=== PATIENT | male | born 1965 | race Caucasian/White ===

== ENCOUNTER 2018-11-06 12:34 | Inpatient (IN) ==
[2018-11-06] MEDS ORDERED: *HR* FentaNYL (PF) 100 MCG/2 ML VIAL IVP ONE (13:00)
--- NOTE | 2018-11-06 13:22 | Emergency Department Note ---
Disposition Clinical Impression: Pneumothorax Qualifiers: Pneumothorax type: traumatic Encounter type: initial encounter Qualified Code(s): S27.0XXA - Traumatic pneumothorax, initial encounter Rib fractures Qualifiers: Qualified Code(s): S22.41XA - Disposition: Admitted As Inpatient Condition: Good Time of Disposition: 19:56 Fall HPI - General Chief Complaint: ED Fall Stated Complaint: Fall 5 ft vs picnic table Time Seen by Provider: 11/06/18 12:53 Source: patient Nursing Notes Reviewed: Yes Vital Signs Reviewed: Yes - History of Present Illness HPI Narrative: 53-year-old male presents emergency department for concern for fall. Patient was pressure washing. States that he fell from a picnic table which is a 5 feet up. He states that he hurt the right side of his chest. Patient states that he passed out. Patient denies any discomfort anywhere else. - Related Data Home Medications Medication Instructions Recorded Confirmed Modafinil [Provigil] 200 mg PO DAILY 11/06/18 11/06/18 Allergies Allergy/AdvReac Type Severity Reaction Status Date / Time No Known Allergies Allergy Verified 11/06/18 13:30 All systems ED: reviewed and negative except as stated. Review of Systems: As Per HPI Constitutional: Denies: fever Cardiovascular: Reports: chest pain, syncope Respiratory: Denies: dyspnea Gastrointestinal: Denies: abdominal pain, nausea, vomiting Genitourinary: Denies: dysuria, frequency Musculoskeletal: Denies: back pain Neurological: Denies: weakness Fall PMH - Past Medical History Medical history: Reports: no medical history Psychiatric history: Reports: no psych history - Social History Smoking Status: Never smoker Alcohol use: Reports: none Drug use: Reports: none Physical Exam - General Limitations: no limitations General appearance: alert, in no apparent distress - Head Head exam: normocephalic - Eye Eye exam: Present: EOMI - ENT ENT exam: mucous membranes moist - Neck Neck exam: Present: trachea midline - Chest Chest inspection: Present: symmetric chest wall rise, other (Right-sided tenderness. Palpation of the chest wall, equal chest excursion, some mild abrasions on the right lower costal region of the chest) - Respiratory Respiratory exam: Present: normal lung sounds bilaterally. Absent: respiratory distress, accessory muscle use - Cardiovascular Cardiovascular exam: Present: regular rate, normal rhythm, normal heart sounds - Abdominal Exam Abdominal exam: Present: soft, Non-Tender. Absent: distention, guarding, rebound - Extremities Exam Extremities exam: Present: normal capillary refill - Back Exam Back exam: Present: full ROM - Neurological Exam Neurological exam: Present: alert, oriented X3, CN II-XII intact, other (And A0, GCS 15) - Psychiatric Psychiatric exam: Present: normal affect, normal mood Course Vital Signs Temperature 97.7 F 11/06/18 12:37 Pulse Rate 75 11/06/18 12:37 Respiratory Rate 18 11/06/18 12:37 Blood Pressure 134/85 11/06/18 12:37 O2 Sat by Pulse Oximetry 98 11/06/18 12:37 Temperature 97.7 F 11/06/18 12:37 Pulse Rate 94 11/06/18 17:19 Respiratory Rate 14 11/06/18 17:19 Blood Pressure 133/77 11/06/18 17:19 O2 Sat by Pulse Oximetry 98 11/06/18 17:19 Oxygen Delivery Oxygen Delivery Nasal Cannula Procedures - Chest Tube Chest Tube 1 Chest Tube Location: fifth interspace Size of Tube (cm): 28 Chest Tube Prep: betadine prep, sterile drapes applied Local Anesthetic: lidocaine 1%, with epi Amount of Anesthesia Used (mL): 15 Incision Made With: #10 blade Post Procedure: sutured to skin, sterile dressing applied Tube Drainage: none Post Procedure CXR?: Yes Patient Tolerated Procedure: Yes Fall - [facility] Narrative Medical decision making narrative: 53-year-old male presents emergency department after traumatic fall. Airway, breathing, circulation intact. Patient does not have any disability. GCS 15, NIH 0, upon exposure, patient had mild abrasion of the right costal margin. ED fast exam was obtained. Did not reveal any acute abnormality. Patient is given pain medication. Obtain chest x-ray which revealed no acute cardiopulmonary abnormality. We did however, obtain a CT of the chest which revealed rib fractures as well as a 20% pneumothorax. CT scan of abdomen and pelvis reveal any intra-abdominal abnormalities. Patient was consented for chest tube placement. Chest tube was placed succes sfully. No complications. Resolution of a lot of symptoms for patient after insertion of chest tube. I spoke with our acute care surgery team who agreed to accept this patient to their service. Patient hemodynamically stable and feeling much better at that time. Pelvis X-Ray 11/06/18 13:00 IMPRESSION: Unremarkable AP pelvis radiograph. If pain persists or worsens, then additional evaluation with MRI is indicated to ensure no underlying radiographically occult process such as fracture, AVN or transient osteoporosis. D/ / Hardy Saez / Hardy Saez Interpreting Provider: Hardy Saez Abdomen/Pelvis CT 11/06/18 13:19 IMPRESSION: No CT evidence of acute intra-traumatic injury on this noncontrast study. Partially visualized moderate size right pneumothorax. Right lateral 5th and 6th rib nondisplaced fractures. Enlarged prostate gland. Fatty liver. D/ / Artis Hidalgo / Artis Hidalgo Interpreting Provider: Artis Hidalgo Chest CT 11/06/18 13:19 IMPRESSION: 1. Suboptimal CT exam for evaluation of acute trauma performed without IV contrast. 2. Approximately 20% right pneumothorax. 3. Nondisplaced fractures lateral right ribs 6 and 7. 4. Mild right chest wall contusion. 5. Right basilar subsegmental atelectasis versus focal pulmonary contusion. 6. Mild calcific atherosclerosis aorta and coronary arteries. Critical results were called by Dr. Hardy Saez to Thad Sterling DO on 11/06/2018 at 14:49 full. D/ / Hardy Saez Interpreting Provider: Hardy Saez Chest X-Ray 11/06/18 16:52 IMPRESSION: 1. Interval right chest tube placement with resolution of the pneumothorax. 2. No new abnormality 3. Nondisplaced right 6th and 7th rib fractures. D/ / Theo Jarvis MD / Theo Jarvis MD Interpreting Provider: Theo Jarvis MD - Lab Data Result diagrams: 11/06/18 15:42 11/06/18 15:42 Lab Results 11/06/18 11/06/1811/06/19 Range/Units 15:42 15:42 15:42 WBC 14.3 H (4.3-11.1) K/mcL RBC 5.40 (4.19-5.50) M/mcL Hgb 15.7 (12.9-16.9) g/dL Hct 46.7 (37.5-50.1) % MCV 86.5 (83.0-100.0) fL MCH 29.1 (28.0-33.3) pg MCHC 33.6 (31.6-35.5) g/dL RDW 13.4 (11.5-14.5) % Plt Count 229 (140-400) K/mcL MPV 9.5 (9.4-12.4) fL Immature Gran % 0.5 (0-4) % Seg Neutrophils % 80.6 % Lymphocytes % 10.6 % Monocytes % 7.8 % Eosinophils % 0.3 % Basophils % 0.2 % Neutrophils # 11.5 H (1.6-8.9) K/mcL Lymphocytes # 1.5 (0.6-4.6) K/mcL Monocytes # 1.1 (0.0-1.3) K/mcL Eosinophils # 0.0 (0.0-0.6) K/mcL Basophils # 0.0 (0.0-0.2) K/mcL PT 11.4 (9.4-12.1) Seconds INR 1.0 Sodium 142 (136-145) mEq/L Potassium 3.7 (3.5-5.1) mEq/L Chloride 106 (98-107) mEq/L Carbon Dioxide 24 (23-29) mEq/L BUN 14 (6-20) mg/dL Creatinine 1.01 (0.70-1.30) mg/dL Est GFR ( Amer) > 60 (> 60) Est GFR (Non-Af Amer) > 60 (> 60) BUN/Creatinine Ratio 14 (6-26) Glucose 112 H (70-105) mg/dL Calculated Osmolality 295 (280-300) Calcium 9.8 (8.6-10.3) mg/dL Total Bilirubin 0.5 (0.3-1.0) mg/dL AST 29 (13-39) Units/L ALT 38 (7-52) Units/L Alkaline Phosphatase 84 (34-104) Units/L Serum Total Protein 7.4 (6.4-8.9) g/dL Albumin 4.6 (3.5-5.7) g/dL Globulin 2.8 (2.4-3.5) g/dL Albumin/Globulin Ratio 1.6 (1.1-2.2) Lipase (11-82) Units/L // Range/Units 15:42 WBC (4.3-11.1) K/mcL RBC (4.19-5.50) M/mcL Hgb (12.9-16.9) g/dL Hct (37.5-50.1) % MCV (83.0-100.0) fL MCH (28.0-33.3) pg MCHC (31.6-35.5) g/dL RDW (11.5-14.5) % Plt Count (140-400) K/mcL MPV (9.4-12.4) fL Immature Gran % (0-4) % Seg Neutrophils % % Lymphocytes % % Monocytes % % Eosinophils % % Basophils % % Neutrophils # (1.6-8.9) K/mcL Lymphocytes # (0.6-4.6) K/mcL Monocytes # (0.0-1.3) K/mcL Eosinophils # (0.0-0.6) K/mcL Basophils # (0.0-0.2) K/mcL PT (9.4-12.1) Seconds INR Sodium (136-145) mEq/L Potassium (3.5-5.1) mEq/L Chloride (98-107) mEq/L Carbon Dioxide (23-29) mEq/L BUN (6-20) mg/dL Creatinine (0.70-1.30) mg/dL Est GFR ( Amer) (> 60) Est GFR (Non-Af Amer) (> 60) BUN/Creatinine Ratio (6-26) Glucose (70-105) mg/dL Calculated Osmolality (280-300) Calcium (8.6-10.3) mg/dL Total Bilirubin (0.3-1.0) mg/dL AST (13-39) Units/L ALT (7-52) Units/L Alkaline Phosphatase (34-104) Units/L Serum Total Protein (6.4-8.9) g/dL Albumin (3.5-5.7) g/dL Globulin (2.4-3.5) g/dL Albumin/Globulin Ratio (1.1-2.2) Lipase 19 (11-82) Units/L - Radiology Data Radiology results reviewed: Yes I reviewed the patient's radiology results.
[2018-11-06] MEDS ORDERED: Morphine Sulfate Immed Rel 30 MG TABLET PO STA (15:14)
[2018-11-06] MEDS ORDERED: *HR* HYDROmorphone (PF) 1 MG/ML SYRINGE IVP ONE ×2 (15:14→16:30)
[2018-11-06] MEDS ORDERED: Lidocaine/EPI 1:100k 1% 30 ML VIAL INFILT ONE (15:18)
--- NOTE | 2018-11-06 15:20 | Emergency Department Note ---
Disposition Clinical Impression: Pneumothorax Qualifiers: Pneumothorax type: traumatic Encounter type: initial encounter Qualified Code(s): S27.0XXA - Traumatic pneumothorax, initial encounter Disposition: Admitted As Inpatient Condition: Good Forms: ED Satisfaction Letter Time of Disposition: 15:17 General Adult HPI - General Chief complaint: ED Fall Stated complaint: Fall 5 ft vs picnic table Time Seen by Provider: 11/06/18 12:53 Source: patient Limitations: no limitations - History of Present Illness Pain Scale: 5 - Related Data Allergies Allergy/AdvReac Type Severity Reaction Status Date / Time No Known Allergies Allergy Verified 11/06/18 13:30 Past Medical History - Past Medical History Medical history: Reports: no medical history Psychiatric history: Reports: no psych history - Social History Smoking Status: Never smoker Alcohol use: Reports: none Drug use: Reports: none Physical Exam - General Limitations: no limitations General appearance: alert, in no apparent distress Course Vital Signs Temperature 97.7 F 11/06/18 12:37 Pulse Rate 75 11/06/18 12:37 Respiratory Rate 18 11/06/18 12:37 Blood Pressure 134/85 11/06/18 12:37 O2 Sat by Pulse Oximetry 98 11/06/18 12:37 Temperature 97.7 F 11/06/18 12:37 Pulse Rate 99 11/06/18 15:10 Respiratory Rate 18 11/06/18 15:10 Blood Pressure 139/92 11/06/18 15:10 O2 Sat by Pulse Oximetry 100 11/06/18 15:10 Oxygen Delivery Oxygen Delivery Room Air Attestation Statement - Attestation Attestation: I reviewed the residents documentation and agree with the residents assessment and plan of care. I have personally had face to face time with the patient. (Brief History, Brief Exam, and MDM) I personally supervised and was present for the murray/critical portions of the following procedures completed by the resident: Chest tube 53 year old male presents to the ED with complaints of fall while pressure washing and slipped and fell from one picnic table and fell into the side of another picnic table and then expereinced syncope. He has crusing to the 5-8th right rib area and there are otherwise concern fo rpneumonthorax or liver laceration. PAtinet CXR is negative, and FAST exam (-). Patient on CT chest shows moderate pneumo and we have consulted with surgery with Dr. Houston and they would like to us to place a 28 upper sorbian chest tube. Patient is otherwise hemodynamically stable. He has been accepted to surgerical service
[2018-11-06 16:09] LABS: Basophils % 0.2 %; Eosinophils % 0.3 %; Hematocrit 46.7 % (37.5-50.1); Hemoglobin 15.7 g/dL (12.9-16.9); Immature Granulocytes % 0.5 % (0-4); Lymphocytes # 1.5 K/mcL (0.6-4.6); Lymphocytes % 10.6 %; Mean Corpuscular HGB Conc 33.6 g/dL (31.6-35.5); Mean Corpuscular Hemoglobin 29.1 pg (28.0-33.3); Mean Corpuscular Volume 86.5 fL (83.0-100.0); Mean Platelet Volume 9.5 fL (9.4-12.4); Monocytes # 1.1 K/mcL (0.0-1.3); Monocytes % 7.8 %; Neutrophils # 11.5 K/mcL (1.6-8.9); Platelet Count 229 K/mcL (140-400); Red Cell Distribution Width 13.4 % (11.5-14.5); Segmented Neutrophils % 80.6 %; White Blood Count 14.3 K/mcL (4.3-11.1)
[2018-11-06 16:26] LABS: Alanine Aminotransferase 38 Units/L (7-52); Albumin 4.6 g/dL (3.5-5.7); Albumin/Globulin Ratio 1.6 (1.1-2.2); Alkaline Phosphatase 84 Units/L (34-104); Aspartate Amino Transferase 29 Units/L (13-39); BUN/Creatinine Ratio 14 (6-26); Bilirubin,Total 0.5 mg/dL (0.3-1.0); Blood Urea Nitrogen 14 mg/dL (6-20); Calcium 9.8 mg/dL (8.6-10.3); Carbon Dioxide 24 mEq/L (23-29); Chloride 106 mEq/L (98-107); Globulin 2.8 g/dL (2.4-3.5); Glucose 112 mg/dL (70-105); Osmolality,Calculated 295 (280-300); Potassium 3.7 mEq/L (3.5-5.1); Sodium 142 mEq/L (136-145); Total Protein 7.4 g/dL (6.4-8.9); eGFR For African Americans > 60 (> 60); eGFR For Non-African Americans > 60 (> 60)
[2018-11-06] MEDS ORDERED: *HR* HYDROmorphone (PF) 1 MG/ML SYRINGE ONE (16:30)
[2018-11-06] MEDS ORDERED: ceFAZolin 1,000 MG in Water for inj. (sterile) 10 ML IVP ONE (16:52)
--- NOTE | 2018-11-06 17:05 | AcuteCare Surgery Consult Note ---
Date of Encounter: 11/06/18 Time of Encounter: 17:00 History of Present Illness Consult date: 11/06/18 Reason for consult: chest tube Requesting physician: Elin Olivares History of present illness: this 53 y/o male presents to [facility] secondary to a fall from a standing position. He fractured ribs and has suffered a PTX. Past Med Surg Social Fam HX - Past Medical History Medical history: no medical history Psychiatric history: no psych history - Social History Smoking Status: Never smoker Alcohol use: none Drug use: none Medications and Allergies Modafinil [Provigil] 200 mg PO DAILY 11/06/18 [History] Allergy/AdvReac Type Severity Reaction Status Date / Time No Known Allergies Allergy Verified 11/06/18 13:30 Review of Systems All systems PM: The remainder of the systems were reviewed and are negative General Surgery Exam Initial Vital Signs Temp Pulse Resp BP Pulse Ox 97.7 F 75 18 134/85 98 11/06/18 12:37 11/06/18 12:37 11/06/18 12:37 11/06/18 12:37 11/06/18 12:37 Exam Initial Vital Signs Temp Pulse Resp BP Pulse Ox 97.7 F 75 18 134/85 98 11/06/18 12:37 11/06/18 12:37 11/06/18 12:37 11/06/18 12:37 11/06/18 12:37 Results - Labs 11/06/18 15:42 11/06/18 15:42 Abnormal lab results WBC 14.3 K/mcL (4.3-11.1) H 11/06/18 15:42 11.5 K/mcL (1.6-8.9) H 11/06/18 15:42 Glucose 112 mg/dL (70-105) H 11/06/18 15:42 Diabetes panel 11/06/18 Range/Units 15:42 Sodium 142 (136-145) mEq/L Potassium 3.7 (3.5-5.1) mEq/L Chloride 106 (98-107) mEq/L Carbon Dioxide 24 (23-29) mEq/L BUN 14 (6-20) mg/dL Creatinine 1.01 (0.70-1.30) mg/dL Glucose 112 H (70-105) mg/dL Calcium 9.8 (8.6-10.3) mg/dL AST 29 (13-39) Units/L ALT 38 (7-52) Units/L Alkaline Phosphatase 84 (34-104) Units/L Albumin 4.6 (3.5-5.7) g/dL Calcium panel 11/06/18 Range/Units 15:42 Calcium 9.8 (8.6-10.3) mg/dL Albumin 4.6 (3.5-5.7) g/dL Pituitary panel 11/06/18 Range/Units 15:42 Sodium 142 (136-145) mEq/L Potassium 3.7 (3.5-5.1) mEq/L Chloride 106 (98-107) mEq/L Carbon Dioxide 24 (23-29) mEq/L BUN 14 (6-20) mg/dL Creatinine 1.01 (0.70-1.30) mg/dL Glucose 112 H (70-105) mg/dL Calcium 9.8 (8.6-10.3) mg/dL Adrenal panel 11/06/18 Range/Units 15:42 Sodium 142 (136-145) mEq/L Potassium 3.7 (3.5-5.1) mEq/L Chloride 106 (98-107) mEq/L Carbon Dioxide 24 (23-29) mEq/L BUN 14 (6-20) mg/dL Creatinine 1.01 (0.70-1.30) mg/dL Glucose 112 H (70-105) mg/dL Calcium 9.8 (8.6-10.3) mg/dL Total Bilirubin 0.5 (0.3-1.0) mg/dL AST 29 (13-39) Units/L ALT 38 (7-52) Units/L Alkaline Phosphatase 84 (34-104) Units/L Albumin 4.6 (3.5-5.7) g/dL All other labs normal. Consult Discharge Plan - Plan Referrals: Hardy Chapman DO [Primary Care Provider] -
[2018-11-06] MEDS ORDERED: Ondansetron 4 MG/2 ML VIAL IVP ONE (17:23)
[2018-11-06 17:31] LABS: Prothrombin Time 11.4 Seconds (9.4-12.1)
[2018-11-06] MEDS ORDERED: Naloxone 0.4 MG/ML INJ IVP PRN (18:35)
--- NOTE | 2018-11-06 18:40 | Acute Care Surgery H&P ---
Date of Encounter: 11/06/18 Time of Encounter: 17:30 Assessment and Plan (1) Pneumothorax, right Current Visit: Yes Status: Acute The assessment and plan as outlined above was discussed with the patient and/or family members who expressed understanding and agreement. All questions were answered. Right chest tube inserted in ED. Routine CT management. O2 per nc. Ancef IV until CT removed. IS. (2) Rib fractures Current Visit: Yes Status: Acute The assessment and plan as outlined above was discussed with the patient and/or family members who expressed understanding and agreement. All questions were answered. Pain control with PO narcotics Qualifiers: Qualified Code(s): S22.41XA - Multiple fractures of ribs, right side, initial encounter for closed fracture (3) Chest wall contusion Current Visit: Yes Status: Acute The assessment and plan as outlined above was discussed with the patient and/or family members who expressed understanding and agreement. All questions were an swered. Qualifiers: Qualified Code(s): S20.211A - Contusion of right front wall of thorax, initial encounter (4) Status post fall Current Visit: Yes Status: Acute The assessment and plan as outlined above was discussed with the patient and/or family members who expressed understanding and agreement. All questions were answered. Spontaneous trauma resulting from an accident and resulting in blunt chest trauma with right rib fx x2 and right PTX History of Present Illness Chief complaint: right pneumothorax HPI: Mr. Graves is a 53 year old male who fell off of a table onto another table while power washing. He fell onto his right side. He reports right sided chest pain and SOB. He reports bruising to his right chest and abdomen. He denies LOC. A chest tube was placed in the ED and pt is admitted to [facility] for CT management s/p trauma Past Med Surg Social Fam HX - Past Medical History Medical history: no medical history Psychiatric history: no psych history - Social History Smoking Status: Never smoker Alcohol use: none Drug use: none Medications and Allergies Modafinil [Provigil] 200 mg PO DAILY 11/06/18 [History] Allergy/AdvReac Type Severity Reaction Status Date / Time No Known Allergies Allergy Verified 11/06/18 13:30 Review of Systems All systems PM: The remainder of the systems were reviewed and are negative - Constitutional other (s/p fall), no anorexia, no chills, no fatigue, no fever(s), no frequent falls, no lethargy, no malaise, no weakness - EENT Nose, mouth and throat: no dizziness, no dry mouth, no nasal congestion, no nasal discharge, no sinus pain, no sinus pressure, no sore throat - Cardiovascular chest pain, chest pain at rest, dyspnea, dyspnea on exertion, no diaphoresis, no edema - Respiratory dyspnea, no cough, no wheezing - Gastrointestinal no abdominal pain, no constipation, no diarrhea, no hematochezia, no melena, no nausea, no vomiting - Genitourinary flank pain, no dysuria, no urinary frequency - Musculoskeletal back pain, neck pain, no joint swelling, no limited range of motion - Integumentary no dry skin, no pruritus, no rash, no wounds, no jaundice - Neurological no confusion, no dizziness, no focal weakness, no weakness - Psychiatric no anxiety, no confusion, no depression - Endocrine no fatigue - Hematologic/Lymphatic no easy bleeding, no easy bruising General Surgery Exam Initial Vital Signs Temp Pulse Resp BP Pulse Ox 97.7 F 75 18 134/85 98 11/06/18 12:37 11/06/18 12:37 11/06/18 12:37 11/06/18 12:37 11/06/18 12:37 - General physical appearance well developed, well nourished, no distress, moderate pain - Eyes PERRL, normal ocular movement. negative: icteric - ENT no congestion, dry mucosa. negative: nasal discharge - Neck no masses, trachea midline, no lymphadectomy, no venous distension - Respiratory normal respiratory effort rales: right - Cardiovascular Cardiovascular exam: Present: RRR (chest tube in place). Absent: murmurs, JVD - Abdomen Abdomen general surgery: Present: bowel sounds present, soft, non tender. Absent: guarding, rebound - Genitourinary Present: normal penis with no external lesions - Neurologic Present: CN 2-12 grossly intact, normal coordination - Musculoskeletal Present: normal posture - Psychiatric Psychiatric general surgery: Present: A&Ox3, appropriate, oriented to person Results - Labs 11/06/18 15:42 11/06/18 15:42 Abnormal lab results WBC 14.3 K/mcL (4.3-11.1) H 11/06/18 15:42 11.5 K/mcL (1.6-8.9) H 11/06/18 15:42 Glucose 112 mg/dL (70-105) H 11/06/18 15:42 Diabetes panel 11/06/18 Range/Units 15:42 Sodium 142 (136-145) mEq/L Potassium 3.7 (3.5-5.1) mEq/L Chloride 106 (98-107) mEq/L Carbon Dioxide 24 (23-29) mEq/L BUN 14 (6-20) mg/dL Creatinine 1.01 (0.70-1.30) mg/dL Glucose 112 H (70-105) mg/dL Calcium 9.8 (8.6-10.3) mg/dL AST 29 (13-39) Units/L ALT 38 (7-52) Units/L Alkaline Phosphatase 84 (34-104) Units/L Albumin 4.6 (3.5-5.7) g/dL Calcium panel 11/06/18 Range/Units 15:42 Calcium 9.8 (8.6-10.3) mg/dL Albumin 4.6 (3.5-5.7) g/dL Pituitary panel 11/06/18 Range/Units 15:42 Sodium 142 (136-145) mEq/L Potassium 3.7 (3.5-5.1) mEq/L Chloride 106 (98-107) mEq/L Carbon Dioxide 24 (23-29) mEq/L BUN 14 (6-20) mg/dL Creatinine 1.01 (0.70-1.30) mg/dL Glucose 112 H (70-105) mg/dL Calcium 9.8 (8.6-10.3) mg/dL Adrenal panel 11/06/18 Range/Units 15:42 Sodium 142 (136-145) mEq/L Potassium 3.7 (3.5-5.1) mEq/L Chloride 106 (98-107) mEq/L Carbon Dioxide 24 (23-29) mEq/L BUN 14 (6-20) mg/dL Creatinine 1.01 (0.70-1.30) mg/dL Glucose 112 H (70-105) mg/dL Calcium 9.8 (8.6-10.3) mg/dL Total Bilirubin 0.5 (0.3-1.0) mg/dL AST 29 (13-39) Units/L ALT 38 (7-52) Units/L Alkaline Phosphatase 84 (34-104) Units/L Albumin 4.6 (3.5-5.7) g/dL All other labs normal. - Imaging Chest x-ray: image reviewed (resolution of right PTX after CT inserted) CT scan - abdomen: image reviewed (No obvious intraabdominal injury) CT scan - chest: image reviewed (right rib 5&6 fx and right PTX)
[2018-11-06] MEDS ORDERED: 0.9 % Sodium Chloride 1,000 ML IVC SCH (18:45)
[2018-11-06] MEDS: *HR* OxyCODONE/APAP 5/325 TABLET PO PRN (20:36)
[2018-11-07] MEDS: ceFAZolin 1,000 MG in Water for inj. (sterile) 10 ML IVP SCH ×4 (01:07→23:38)
[2018-11-07] MEDS: *HR* OxyCODONE/APAP 5/325 TABLET PO PRN ×4 (02:47→23:50)
--- NOTE | 2018-11-07 12:12 | AcuteCareSurgery Progress Note ---
<Gardenia Love - Last Filed: 11/07/18 12:13> Date of Encounter: 11/07/18 Time of Encounter: 12:11 - Assessment and Plan (1) Pneumothorax, right Current Visit: Yes Status: Acute Status post day 1 chest tube placement for traumatic pneumothorax on the right No air leak, chest tube in place IV antibiotics cefazolin Oxycodone for pain Chest x-ray this morning-indwelling right large bore chest tube with subcutaneous emphysema seen, this sidehole catheter tracking into the soft tissues. Chest tube currently to suction, as there is no air leak will place chest tube to waterseal. Will repeat chest x-ray this afternoon to further evaluate pneumothorax. (2) Rib fractures Current Visit: Yes Status: Acute Right lateral fifth and sixth rib nondisplaced fractures secondary to traumatic fall. Pain control-oxycodone Intermittent spirometry Qualifiers: Encounter type: initial encounter Rib fracture type: multiple ribs Fracture type: closed Laterality: right Qualified Code(s): S22.41XA - Multiple fractures of ribs, right side, initial encounter for closed fracture (3) Chest wall contusion Current Visit: Yes Status: Acute Status post fall with traumatic rib fractures, chest wall contusion, pneumothorax. See above for management Qualifiers: Encounter type: initial encounter Laterality: right Qualified Code(s): S20.211A - Contusion of right front wall of thorax, initial encounter (4) Status post fall Current Visit: Yes Status: Acute Status post fall with traumatic rib fractures, chest wall contusion, pneumothorax. See above for management (5) DVT prophylaxis Current Visit: Yes Status: Acute Subcutaneous heparin Subjective Narrative: Patient seen and examined at bedside today. His chest tube is in place, no air leak present. The chest tube is currently to suction. He admits to some pain around the chest tube insertion site as well as some pain with taking a deep breath secondary to history of fractures. He denies nausea, vomiting, fever, chills, shortness breath, abdominal pain, diarrhea, constipation, dysuria, hematuria, calf pain. Objective Vital Signs - Last 8 Hours Temp Pulse Resp BP Pulse Ox 11/07/18 11:17 68 124/85 94 11/07/18 06:41 97.9 F 60 141/88 98 11/07/18 04:20 98.2 F 63 16 136/82 98 Intake and Output 11/06/18 11/07/18 11/07/18 23:59 07:59 15:59 Intake Total 360 / 720 360 / 720 Output Total 684 / 884 200 / 884 Balance -324 / -164 160 / -164 Intake: IV Fluids Ancef 1,000 MG In Water for inj . (sterile) 10 ML @ 200 mls/hr IVP Q8HR [facility] Rx#:[id number] Oral 0 / 0 350 / 710 360 / 710 Output: Urine 0 / 0 650 / 850 200 / 850 Chest Tube Drainage Right Mid-Axillary Chest Other: Meal Breakfast Percent of Meal Consumed 85% Weight 78.8 kg Patient Weight 11/07/18 23:59 Weight 78.8 kg - General physical appearance well developed, well nourished, no distress - Eyes PERRL, normal ocular movement - ENT normal mucosa, no congestion - Neck Neck exam: trachea midline, no venous distension - Respiratory normal expansion, normal respiratory effort, clear to auscultation, other (Mild tenderness to palpation over chest tube insertion site and over ribs 5 and 6 on the right.) - Cardiovascular Cardiovascular exam: Present: RRR, no murmurs/rubs/gallops. Absent: JVD - Abdomen Abdomen: Present: bowel sounds present, soft, non tender. Absent: distended - Incision Incision: Present: clean and dry, intact - Neurologic CN 2-12 grossly intact, normal coordination, normal sensation - Musculoskeletal normal posture - Psychiatric oriented to time, oriented to person, oriented to place, speech is normal, memory intact - Labs 11/06/18 15:42 11/06/18 15:42 Diabetes panel 11/06/18 Range/Units 15:42 Sodium 142 (136-145) mEq/L Potassium 3.7 (3.5-5.1) mEq/L Chloride 106 (98-107) mEq/L Carbon Dioxide 24 (23-29) mEq/L BUN 14 (6-20) mg/dL Creatinine 1.01 (0.70-1.30) mg/dL Glucose 112 H (70-105) mg/dL Calcium 9.8 (8.6-10.3) mg/dL AST 29 (13-39) Units/L ALT 38 (7-52) Units/L Alkaline Phosphatase 84 (34-104) Units/L Albumin 4.6 (3.5-5.7) g/dL Calcium panel 11/06/18 Range/Units 15:42 Calcium 9.8 (8.6-10.3) mg/dL Albumin 4.6 (3.5-5.7) g/dL Pituitary panel 11/06/18 Range/Units 15:42 Sodium 142 (136-145) mEq/L Potassium 3.7 (3.5-5.1) mEq/L Chloride 106 (98-107) mEq/L Carbon Dioxide 24 (23-29) mEq/L BUN 14 (6-20) mg/dL Creatinine 1.01 (0.70-1.30) mg/dL Glucose 112 H (70-105) mg/dL Calcium 9.8 (8.6-10.3) mg/dL Adrenal panel 11/06/18 Range/Units 15:42 Sodium 142 (136-145) mEq/L Potassium 3.7 (3.5-5.1) mEq/L Chloride 106 (98-107) mEq/L Carbon Dioxide 24 (23-29) mEq/L BUN 14 (6-20) mg/dL Creatinine 1.01 (0.70-1.30) mg/dL Glucose 112 H (70-105) mg/dL Calcium 9.8 (8.6-10.3) mg/dL Total Bilirubin 0.5 (0.3-1.0) mg/dL AST 29 (13-39) Units/L ALT 38 (7-52) Units/L Alkaline Phosphatase 84 (34-104) Units/L Albumin 4.6 (3.5-5.7) g/dL Consult Discharge Plan - Plan Referrals: Hardy Chapman DO [Primary Care Provider] - <Nereyda Gutierrez - Last Filed: 11/07/18 16:43> Date of Encounter: 11/07/18 - Assessment and Plan (1) Pneumothorax, right Current Visit: Yes Status: Acute (2) Rib fractures Current Visit: Yes Status: Acute Qualifiers: Encounter type: initial encounter Rib fracture type: multiple ribs Fracture type: closed Laterality: right Qualified Code(s): S22.41XA - Multiple fractures of ribs, right side, initial encounter for closed fracture (3) Chest wall contusion Current Visit: Yes Status: Acute Qualifiers: Encounter type: initial encounter Laterality: right Qualified Code(s): S20.211A - Contusion of right front wall of thorax, initial encounter (4) Status post fall Current Visit: Yes Status: Acute Objective Vital Signs - Last 8 Hours Pulse BP Pulse Ox 11/07/18 15:15 70 154/92 94 11/07/18 11:17 68 124/85 94 Intake and Output 11/07/18 11/07/18 11/07/18 07:59 15:59 23:59 Intake Total 360 / 970 610 / 970 Output Total 684 / 909 225 / 909 Balance -324 / 61 385 / 61 Intake: IV Fluids Ancef 1,000 MG In Water for inj . (sterile) 10 ML @ 200 mls/hr IVP Q8HR [facility] Rx#:[id number] Oral 350 / 950 600 / 950 Output: Urine 650 / 850 200 / 850 Chest Tube Drainage Right Mid-Axillary Chest Other: Meal Lunch Percent of Meal Consumed 100% Weight 78.8 kg Patient Weight 11/07/18 23:59 Weight 78.8 kg - Labs 11/06/18 15:42 11/06/18 15:42 - Attending Attestation I examined this patient and my medical decision-making was reviewed with the Resident Physician. I agree with the documented findings, disposition and treatment plan as described except to the extent set forth below. Pt is HD#2 with right chest tube for pneumothorax d/t rib fractures after fall. He tolerated chest tube to water seal today without recurrence of PTX. Chest tube is without air leak. If PCXR in am reveals continued expansion of right lung will dc chest tube and DC to home with pain meds for rib fx and close f/u.
[2018-11-07] MEDS: *HR* Heparin 5,000 UNIT/ML VIAL SQ SCH (17:14)
[2018-11-08 02:35] LABS: Basophils % 0.4 %; Eosinophils # 0.2 K/mcL (0.0-0.6); Eosinophils % 2.2 %; Hematocrit 41.8 % (37.5-50.1); Hemoglobin 13.9 g/dL (12.9-16.9); Immature Granulocytes % 0.3 % (0-4); Lymphocytes # 2.2 K/mcL (0.6-4.6); Lymphocytes % 31.2 %; Mean Corpuscular HGB Conc 33.3 g/dL (31.6-35.5); Mean Corpuscular Hemoglobin 29.1 pg (28.0-33.3); Mean Corpuscular Volume 87.6 fL (83.0-100.0); Mean Platelet Volume 9.5 fL (9.4-12.4); Monocytes # 0.9 K/mcL (0.0-1.3); Monocytes % 13.3 %; Neutrophils # 3.6 K/mcL (1.6-8.9); Platelet Count 212 K/mcL (140-400); Red Blood Count 4.77 M/mcL (4.19-5.50); Red Cell Distribution Width 13.5 % (11.5-14.5); Segmented Neutrophils % 52.6 %; White Blood Count 6.9 K/mcL (4.3-11.1)
[2018-11-08 02:53] LABS: BUN/Creatinine Ratio 11 (6-26); Blood Urea Nitrogen 12 mg/dL (6-20); Calcium 8.3 mg/dL (8.6-10.3); Carbon Dioxide 27 mEq/L (23-29); Chloride 104 mEq/L (98-107); Glucose 112 mg/dL (70-105); Osmolality,Calculated 287 (280-300); Sodium 138 mEq/L (136-145); eGFR For African Americans > 60 (> 60); eGFR For Non-African Americans > 60 (> 60)
[2018-11-08] MEDS: *HR* OxyCODONE/APAP 5/325 TABLET PO PRN (05:49)
[2018-11-08] MEDS: *HR* Heparin 5,000 UNIT/ML VIAL SQ SCH (05:49)
--- NOTE | 2018-11-08 09:50 | Discharge Summary ---
<Gardenia Love - Last Filed: 11/08/18 13:33> - NOTES TO OUTPATIENT PROVIDER Notes to Outpatient Provider: Patient sustained a right-sided pneumothorax as well as rib fractures to right lateral fifth, sixth, seventh rib after a fall onto a picnic table while power washing. He is status post chest tube. Sutures remain in place from chest tube site. Patient to follow-up with acute care surgery in one week for chest xray to assess for complete resolution of pneumothorax and suture removal. New medication includes Percocet for 5 days. Orders not resulted at time of discharge: Pending orders 11/08/18 10:00 XR chest 1V [XR] Routine XR knee 3V LT [XR] Routine Date of Encounter: 11/08/18 Time of Encounter: 09:45 - Discharge Diagnosis (1) Pneumothorax, right Priority: Primary Status: Acute (2) Rib fractures Priority: Secondary Status: Acute Qualifiers: Encounter type: initial encounter Rib fracture type: multiple ribs Fracture type: closed Laterality: right Qualified Code(s): S22.41XA - Multiple fractures of ribs, right side, initial encounter for closed fracture (3) Chest wall contusion Priority: Secondary Status: Acute Qualifiers: Encounter type: initial encounter Laterality: right Qualified Code(s): S20.211A - Contusion of right front wall of thorax, initial encounter (4) Status post fall Priority: Secondary Status: Acute (5) DVT prophylaxis Priority: Secondary Status: Acute General Surgery Exam Initial Vital Signs Temp Pulse Resp BP Pulse Ox 97.7 F 75 18 134/85 98 11/06/18 12:37 11/06/18 12:37 11/06/18 12:37 11/06/18 12:37 11/06/18 12:37 - General physical appearance well developed, well nourished, no distress - Eyes PERRL, normal ocular movement - ENT normal mucosa - Neck trachea midline, no venous distension - Respiratory normal expansion, normal respiratory effort, clear to auscultation, other (Chest tube site is closed with suture, no erythema or drainage. ) - Cardiovascular Cardiovascular exam: Present: RRR, no murmurs/rubs/gallops. Absent: JVD - Abdomen Abdomen general surgery: Present: bowel sounds present, soft, non tender - Integumentary Integumentary general surgery: Present: warm and dry, no abnormal pigmentation - Neurologic Present: CN 2-12 grossly intact, normal coordination, normal sensation - Musculoskeletal Present: normal gait, normal posture - Psychiatric Psychiatric general surgery: Present: appropriate, oriented to person, oriented to place, oriented to time, speech is normal, memory intact - Hospital Course Hospital course: Mr. Graves is a 53 year old male who presented after a fall with complaint of right-sided pain of his chest. He denies a past medical history. The patient was standing on a picnic table and power washing when he fell and injured the right side of his chest. A CT was performed which revealed a right-sided 20% pneumothorax, nondisplaced fractures of the lateral right ribs 5, 6, and 7, mild right chest wall contusion. While in the emergency department a chest tube was placed into the right fifth interspace and placed to suction. Prophylactic antibiotic Ancef was given for duration of chest tube. Patient had daily chest x-rays to need to monitor the pneumothorax. Chest tube was placed to water seal on day 2 with no recurrence of the pneumothorax or air leak. Today, the patient complained of left knee pain and edema, his morning chest x-ray revealed a tiny residual right apical pneumothorax. The chest tube was removed. Several hours later the repeat chest x-ray was performed which revealed a tiny residual right apical pneumothorax which was unchanged from prior. The left knee x-ray revealed no acute abnormality of the knee. Vital signs are stable, pain is well controlled and patient as well for discharge to home. Patient to follow-up with acute care surgery outpatient in one week for repeat chest x-ray and removal of sutures from chest tube site. Patient given a prescription for Percocet for 5 days for pain control for rib fractures. - Time Spent with Patient Total time spent providing and/or coordinating discharge services: - Discharge Medications Prescriptions: New OxyCODONE/APAP 5/325 [Percocet 5/325 MG] 1 each PO Q6HR PRN 5 Days #20 tablet PRN Reason: Severe Pain Continued Modafinil [Provigil] 200 mg PO DAILY Home Medications: Modafinil [Provigil] 200 mg PO DAILY 11/06/18 [History] OxyCODONE/APAP 5/325 [Percocet 5/325 MG] 1 each PO Q6HR PRN 5 Days #20 tablet 11/08/18 [Rx] Allergies/Adverse Reactions: Allergy/AdvReac Type Severity Reaction Status Date / Time No Known Allergies Allergy Verified 11/06/18 13:30 Date of admission: 11/07/18 10:26 Primary care physician: Hardy Chapman Discharging clinician: Gardenia Love Anticipated date of discharge: 11/08/18 Labs on day of discharge: Labs from last 24 hours 11/08/18 11/08/18 02:14 02:14 WBC 6.9 D RBC 4.77 Hgb 13.9 D Hct 41.8 MCV 87.6 MCH 29.1 MCHC 33.3 RDW 13.5 Plt Count 212 MPV 9.5 Immature Gran % 0.3 Seg Neutrophils % 52.6 Lymphocytes % 31.2 Monocytes % 13.3 Eosinophils % 2.2 Basophils % 0.4 Neutrophils # 3.6 Lymphocytes # 2.2 Monocytes # 0.9 Eosinophils # 0.2 Basophils # 0.0 Sodium 138 Potassium 4.0 Chloride 104 Carbon Dioxide 27 BUN 12 Creatinine 1.06 Est GFR ( Amer) > 60 Est GFR (Non-Af Amer) > 60 BUN/Creatinine Ratio 11 Glucose 112 H Calculated Osmolality 287 Calcium 8.3 L - Impressions ITS Impressions Chest X-Ray 11/06/18 13:00 IMPRESSION: No acute cardiopulmonary disease. D/ / Nayan Ryder MD / Nayan leija MD Interpreting Provider: Nayan Ryder MD Pelvis X-Ray 11/06/18 13:00 IMPRESSION: Unremarkable AP pelvis radiograph. If pain persists or worsens, then additional evaluation with MRI is indicated to ensure no underlying radiographically occult process such as fracture, AVN or transient osteoporosis. D/ / Hardy Saez / Hardy Saez Interpreting Provider: Hardy Saez Abdomen/Pelvis CT 11/06/18 13:19 IMPRESSION: No CT evidence of acute intra-traumatic injury on this noncontrast study. Partially visualized moderate size right pneumothorax. Right lateral 5th and 6th rib nondisplaced fractures. Enlarged prostate gland. Fatty liver. D/ / Artis Hidalgo / Artis Hidalgo Interpreting Provider: Artis Hidalgo Chest CT 11/06/18 13:19 IMPRESSION: 1. Suboptimal CT exam for evaluation of acute trauma performed without IV contrast. 2. Approximately 20% right pneumothorax. 3. Nondisplaced fractures lateral right ribs 6 and 7. 4. Mild right chest wall contusion. 5. Right basilar subsegmental atelectasis versus focal pulmonary contusion. 6. Mild calcific atherosclerosis aorta and coronary arteries. Critical results were called by Dr. Hardy Saez to Thad Sterling DO on 11/06/2018 at 14:49 full. D/ / Hardy Saez / Hardy Saez Interpreting Provider: Hardy Saez Chest X-Ray 11/06/18 16:52 IMPRESSION: 1. Interval right chest tube placement with resolution of the pneumothorax. 2. No new abnormality 3. Nondisplaced right 6th and 7th rib fractures. D/ / Theo Jarvis MD / Theo Jarvis MD Interpreting Provider: Theo Jarvis MD Chest X-Ray 11/07/18 08:00 IMPRESSION: Indwelling right large bore chest tube, with subcutaneous emphysema seen. The side hole of the catheter is backed out into the soft tissues. Low lung volumes with minimal left basilar atelectasis. Other findings appear stable from the previous examination. D/ / Lul Navarrete MD / Lul Navarrete MD Interpreting Provider: Lul Navarrete MD Chest X-Ray 11/07/18 14:30 IMPRESSION: 1. Right chest tube unchanged in position with the side port outside the thoracic cage. 2. No convincing pneumothorax. 3. Bibasilar atelectasis. D/ / Michael Banegas MD / Michael Banegas MD Interpreting Provider: Michael Banegas MD Chest X-Ray 11/07/18 16:30 IMPRESSION: Tiny pneumothorax suspected within the right lateral lower chest. D/ / Jamzyn Haq Cha, MD / Jazmyn Haq Cha, MD Interpreting Provider: Jazmyn Haq Cha, MD Chest X-Ray 11/08/18 08:00 IMPRESSION: Tiny residual right apical pneumothorax. Proximal side hole of the right chest tube remains outside the thorax. D/ / James Alba / James Alba Interpreting Provider: James Alba - Patient Status Disposition: Home, Self-Care Condition: Good Functional capacity at discharge: independent ambulation Overall status at discharge: patient is progressing back to baseline - Discharge Instructions Instructions: Oxycodone/Acetaminophen (By mouth), Traumatic Pneumothorax (GEN), Rib Fracture (GEN) Follow Up With: Hardy Chapman DO [Primary Care Provider] - (please call for an appointment within 1 week) Nereyda Gutierrez [Partnered Physician] - Forms: Work/School Release Additional Instructions: Please keep sutures covered with Band-Aid. Follow-up in one week with acute care surgery service, please call the office on Saturday. You will be scheduled for a repeat chest x-ray prior to this appointment. General Surgical Discharge Instructions You may shower beginning today, but no tub baths, soaking, or swimming for 2 weeks. You may resume driving when you are off narcotics and are safe to react in a car. Take ibuprofen every 8 hours for discomfort. If this does not relieve discomfort, you may take the as needed Percocet. Take narcotics as directed. Do not take more narcotics then directed and do not share your narcotics with any other person. Do not drink alcohol while on narcotics. Take stool softeners (Colace) or a water based laxative (Miralax) while taking narcotics. You may hold for loose stools. Report any fevers greater than 100.5F, increase abdominal discomfort, drainage that looks like pus, increased redness or pain at the surgical site, or any vomiting. Report any pain in the calves, shortness of breath, or rapid heartbeat. Follow-up in the office as directed. - Diet and Activity Activity: increase activity as tolerated Diet: advance to your usual diet <Nereyda Gutierrez - Last Filed: 11/08/18 22:04> Date of Encounter: 11/08/18 - Discharge Diagnosis (1) Pneumothorax, right Status: Acute (2) Rib fractures Status: Acute Qualifiers: Encounter type: initial encounter Rib fracture type: multiple ribs Fracture type: closed Laterality: right Qualified Code(s): S22.41XA - Multiple fractures of ribs, right side, initial encounter for closed fracture (3) Chest wall contusion Status: Acute Qualifiers: Encounter type: initial encounter Laterality: right Qualified Code(s): S20.211A - Contusion of right front wall of thorax, initial encounter (4) Status post fall Status: Acute General Surgery Exam Initial Vital Signs Temp Pulse Resp BP Pulse Ox 97.7 F 75 18 134/85 98 11/06/18 12:37 11/06/18 12:37 11/06/18 12:37 11/06/18 12:37 11/06/18 12:37 - Hospital Course Hospital course: Mr. Graves is a 53 year old male - Time Spent with Patient Total time spent providing and/or coordinating discharge services: Date of admission: 11/07/18 10:26 Primary care physician: Hardy Chapman Labs on day of discharge: Labs from last 24 hours 11/08/18 11/08/18 02:14 02:14 WBC 6.9 D RBC 4.77 Hgb 13.9 D Hct 41.8 MCV 87.6 MCH 29.1 MCHC 33.3 RDW 13.5 Plt Count 212 MPV 9.5 Immature Gran % 0.3 Seg Neutrophils % 52.6 Lymphocytes % 31.2 Monocytes % 13.3 Eosinophils % 2.2 Basophils % 0.4 Neutrophils # 3.6 Lymphocytes # 2.2 Monocytes # 0.9 Eosinophils # 0.2 Basophils # 0.0 Sodium 138 Potassium 4.0 Chloride 104 Carbon Dioxide 27 BUN 12 Creatinine 1.06 Est GFR ( Amer) > 60 Est GFR (Non-Af Amer) > 60 BUN/Creatinine Ratio 11 Glucose 112 H Calculated Osmolality 287 Calcium 8.3 L - Impressions ITS Impressions Chest X-Ray 11/06/18 13:00 IMPRESSION: No acute cardiopulmonary disease. D/ / Nayan Ryder MD / Nayan Ryder MD Interpreting Provider: Nayan Ryder MD Pelvis X-Ray 11/06/18 13:00 IMPRESSION: Unremarkable AP pelvis radiograph. If pain persists or worsens, then additional evaluation with MRI is indicated to ensure no underlying radiographically occult process such as fracture, AVN or transient osteoporosis. D/ / Hardy Saez / Hardy Saez Interpreting Provider: Hardy Saez Abdomen/Pelvis CT 11/06/18 13:19 IMPRESSION: No CT evidence of acute intra-traumatic injury on this noncontrast study. Partially visualized moderate size right pneumothorax. Right lateral 5th and 6th rib nondisplaced fractures. Enlarged prostate gland. Fatty liver. D/ / Artis Hidalgo / Artis Hidalgo Interpreting Provider: Artis Hidalgo Chest CT 11/06/18 13:19 IMPRESSION: 1. Suboptimal CT exam for evaluation of acute trauma performed without IV contrast. 2. Approximately 20% right pneumothorax. 3. Nondisplaced fractures lateral right ribs 6 and 7. 4. Mild right chest wall contusion. 5. Right basilar subsegmental atelectasis versus focal pulmonary contusion. 6. Mild calcific atherosclerosis aorta and coronary arteries. Critical results were called by Dr. Hardy Saez to Thad Yisselrosemarie SAUCEDA on 11/06/2018 at 14:49 full. D/ / Hardy Saez / Hardy Saez Interpreting Provider: Hardy Saez Chest X-Ray 11/06/18 16:52 IMPRESSION: 1. Interval right chest tube placement with resolution of the pneumothorax. 2. No new abnormality 3. Nondisplaced right 6th and 7th rib fractures. D/ / Theo Jarvis MD / Theo Jarvis MD Interpreting Provider: Theo Jarvis MD Chest X-Ray 11/07/18 08:00 IMPRESSION: Indwelling right large bore chest tube, with subcutaneous emphysema seen. The side hole of the catheter is backed out into the soft tissues. Low lung volumes with minimal left basilar atelectasis. Other findings appear stable from the previous examination. D/ / Lul Navarrete MD / Lul Navarrete MD Interpreting Provider: Lul Navarrete MD Chest X-Ray 11/07/18 14:30 IMPRESSION: 1. Right chest tube unchanged in position with the side port outside the thoracic cage. 2. No convincing pneumothorax. 3. Bibasilar atelectasis. D/ / Michael Banegas MD / Michael Banegas MD Interpreting Provider: Michael Banegas MD Chest X-Ray 11/07/18 16:30 IMPRESSION: Tiny pneumothorax suspected within the right lateral lower chest. D/ / Jazmyn Haq Cha, MD / Jazmyn Haq Cha, MD Interpreting Provider: Jazmyn Haq Cha, MD Chest X-Ray 11/08/18 08:00 IMPRESSION: Tiny residual right apical pneumothorax. Proximal side hole of the right chest tube remains outside the thorax. D/ / James Alba / James Alba Interpreting Provider: aJmes Alba Chest X-Ray 11/08/18 10:00 IMPRESSION: Removal of the right chest tube. Tiny residual right apical pneumothorax is unchanged. D/ / Liam Marshall MD / Liam Marshall MD Interpreting Provider: Liam Marshall MD Knee X-Ray 11/08/18 10:00 IMPRESSION: No acute abnormality of the knee. D/ / Star Cerrato MD / Star Cerrato MD Interpreting Provider: Star Cerrato MD - Attending Attestation I examined this patient and my medical decision-making was reviewed with the Resident Physician. I agree with the documented findings, disposition and treatment plan as described except to the extent set forth below. Pt responded well to chest tube for right PTX d/t rib fx x2 secondary to trauma from a fall. He has a hairline apical PTX residual. F/U after CXR in 2 weeks. Suture removal at f/u visit.
[2018-11-08] MEDS: ceFAZolin 1,000 MG in Water for inj. (sterile) 10 ML IVP SCH (10:48)
[2018-11-08 11:46] VITALS: BP 145/72
--- NOTE | 2018-11-10 15:43 | Electrocardiograph Report ---
[address] [address] Test Date: 2018-11-06 Pat Name: Ben Graves Department: EXAM9 Room: 2NE29 Gender: M Rn Pacu: : 1965 Requested By: Juan J Warren Order Number: [id number] Reading MD: Nick Estevez Measurements Intervals [place] Rate: 76 P: 63 CT: 156 QRS: 23 QRSD: 103 T: 25 QT: 388 QTc: 437 Interpretive Statements Sinus rhythm Electronically Signed On 11-10-2018 15:41:25 EDT by Nick Estevez
== END 2018-11-08 16:54 | disposition home or self-care (01) | DRG 200 ==
LOC: 2NENU 12:34 → EMEROOARM 12:34 → 2NENU 17:55
PROVIDERS: ADMIT Surgery; ATTEND Surgery